=== PATIENT | female | born 1960 | race Caucasian/White ===

== ENCOUNTER 2019-02-07 05:46 | Day surgery (SDC) | payer OTHER ==
[2019-02-07] MEDS ORDERED: FENTAnyl 50 MCG/ML VIAL (07:51)
[2019-02-07] MEDS ORDERED: DIPHENHYDRAMINE 50 MG INJ IV (08:00)
[2019-02-07] MEDS ORDERED: FENTAnyl 50 MCG/ML VIAL IV (08:00)
[2019-02-07] MEDS ORDERED: HYDROmorphONE 1 MG/5 ML IV SYRINGE IV (08:00)
[2019-02-07] MEDS ORDERED: METOCLOPRAMIDE 10 MG INJ IV (08:00)
[2019-02-07] MEDS ORDERED: ALBUTEROL 0.083% (NEB) 2.5 MG/3 ML AMP HHN (08:00)
[2019-02-07] MEDS: DEXAMETHASONE 4 MG/ML 1 ML INJ (08:02)
[2019-02-07] MEDS: BUPIVACAINE 0.5% (SDV) 30 ML INJ (08:02)
[2019-02-07] MEDS: LIDOCAINE 1% (MPF) 30 ML INJ (08:02)
[2019-02-07] MEDS ORDERED: SUGAMMADEX SODIUM 200 MG/2 ML VIAL IV (08:31)
[2019-02-07] MEDS ORDERED: PROPOFOL 20 ML (08:37)
[2019-02-07] MEDS ORDERED: SUCCINYLCHOLINE CHLORIDE 100 MG/5 ML SYG IV (08:37)
[2019-02-07] MEDS ORDERED: CLINDAMYCIN 600 MG/D5W (PMX) 50 ML IVPB (08:37)
[2019-02-07] MEDS ORDERED: LIDOCAINE 100 MG SYRINGE (08:37)
[2019-02-07] MEDS ORDERED: ROCURONIUM 50 MG INJ (08:37)
[2019-02-07] MEDS: FENTAnyl 50 MCG/ML VIAL IV (08:53)
[2019-02-07] MEDS: MEPERIDINE 25 MG INJ IV (08:53)
[2019-02-07] MEDS: ONDANSETRON 4 MG INJ IV (08:53)
[2019-02-07] MEDS: HYDROmorphONE 1 MG/5 ML IV SYRINGE IV (09:03)
[2019-02-07] MEDS: HYDROCODONE/APAP (10/325) TAB PO (11:00)
== END 2019-02-07 11:40 | disposition home or self-care (01) ==
LOC: SDS 05:46
DX: M21.611 Bunion of right foot (principal)
CPT/HCPCS: 28296; 88304; 88311